=== PATIENT | male | born 1945 | race Caucasian/White ===

== ENCOUNTER 2016-11-22 21:06 | Emergency (ER) | payer MEDICARE, OTHER ==
[2016-11-22 21:23] VITALS: BP 111/73
[2016-11-22] MEDS ORDERED: Acetaminophen/HYDROcodone 325-5 MG Tab PO ONE ×2 (21:25→21:54)
--- NOTE | 2016-11-23 10:50 | CR ---
INDICATION: Fell and hit lower leg, pain from end of prosthesis to ankle. RIGHT TIBIA AND FIBULA: Five images of the right tibia and fibula revealed a TKA with extended intramedullary components in the tibia and fibula, which appears to be in good position and alignment, without evidence of a complicating process. Degenerative changes are noted at the ankle joint, appearing most prominent medially. A definite acute fracture or dislocation was not identified. Some sclerotic changes are noted in the distal fibula, most likely degenerative in nature. IMPRESSION: 1. Intact appearing TKA right knee. 2. 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 3. No definite acute fracture or dislocation. MTDD
--- NOTE | 2016-11-23 16:01 | ER ---
DATE SEEN: 11/22/2016 HISTORY OF PRESENT ILLNESS: The patient is a 71-year-old gentleman who presents to the emergency department with tibia pain. He was out on his pontoon boat and as he was getting off, slipped and cut his right jeong on the edge, sustaining an abrasion and pain in his tibia. He has had a knee replacement in the past but does not report any knee pain. He is able to walk. He is accompanied by his . MEDICATIONS: 1. Flunisolide. 2. Metoprolol. 3. Glucosamine. 4. Neurontin. 5. Zocor. 6. Xarelto. 7. Multivitamin. ALLERGIES: No known drug allergies. PAST MEDICAL HISTORY: Diverticulosis, right total knee replacement, hypertension. REVIEW OF SYSTEMS: CONSTITUTIONAL: No nausea, vomiting, fevers or chills. PHYSICAL EXAMINATION: VITAL SIGNS: Temperature 36.7, pulse 65, blood pressure 111/73, 18 respiratory rate, 98% on room air. GENERAL: He is in no apparent acute distress. MUSCULOSKELETAL: Reveals full range of motion of his knee and right ankle. Tenderness to palpation in mid tibia. DERMATOLOGIC: He has a rash and abrasion of his right tibia that measures about 2 x 4 cm. RADIOGRAPHIC DATA: X-rays of his knee and tibia show no acute fracture. No displacement of hardware or subluxation. EMERGENCY DEPARTMENT COURSE: The patient received [place] 5/325 one tab p.o. for his pain. ASSESSMENT: Right jeong abrasion. PLAN: We will send home with a take-home pack of pain medication, [place]. Wound care instructions given. Follow up with primary/Ortho if no significant improvement in a couple of days. /[id number] CLAU/ANGY
== END 2016-11-22 21:55 | disposition home or self-care (01) ==
LOC: FB.ED 21:06
DX: S80.811A Abrasion, right lower leg, initial encounter (principal); I10 Essential (primary) hypertension; W26.8XXA Contact with other sharp object(s), not elsewhere classified, initial encounter; K57.90 Diverticulosis of intestine, part unspecified, without perforation or abscess without bleeding; Z96.651 Presence of right artificial knee joint
CPT/HCPCS: 73590; 99283; A9270

== ENCOUNTER 2019-06-16 18:23 | Emergency (ER) | payer MEDICARE, OTHER ==
[2019-06-16] MEDS ORDERED: Sodium Chloride 0.9% 10 ML Syringe FLUSH PRN (18:56)
--- NOTE | 2019-06-16 19:00 | EDM.PDOC ---
ED HPI GENERAL MEDICAL PROBLEM - General Chief Complaint: General Stated Complaint: LIGHTED HEADED Time Seen by Provider: 06/16/19 18:45 Source of Information: Reports: Patient, Family, Old Records History Limitations: Reports: No Limitations - History of Present Illness INITIAL COMMENTS - FREE TEXT/NARRATIVE: Mc comes into [facility] ED with a 36 hr hx of lt headiness, worse with standing and movements. There has been no kayli vertigo, chest pain, SOB, palpitations, back pain, or headache. He had similar sxs years ago and found out he had AF. He was on Metoprolol 50 mg per day, but was tapered off this medication last year because of slow heart rate. - Related Data Allergies Allergy/AdvReac Type Severity Reaction Status Date / Time No Known Allergies Allergy Verified 06/16/19 18:51 Home Meds: Home Meds Flunisolide [Nasalide Nasal [place]] 2 spray NASBOTH ASDIRECTED PRN 08/12/15 [ History] Gabapentin [Neurontin] 300 mg PO TID 08/12/15 [History] Glucosam/Chondr/Collagn/Hyalur [Glucosamine & Chondroitin Cap] 2 tab PO DAILY [History] Metoprolol Succinate [Toprol XL] 50 mg PO DAILY 08/12/15 [History] Multivitamin with Minerals [Multiple Vitamin] 1 tab PO DAILY 08/12/15 [History] Rivaroxaban [Xarelto] 20 mg PO WITHDINNER 08/12/15 [History] Simvastatin [Zocor] 20 mg PO DAILY 08/12/15 [History] Past Medical History HEENT History: Reports: Allergic Rhinitis, Impaired Vision Cardiovascular History: Reports: Afib, High Cholesterol, Hypertension, Other ( See Below) Other Cardiovascular History: PAT Gastrointestinal History: Reports: GERD Musculoskeletal History: Reports: Arthritis, Back Pain, Chronic, Osteoarthritis Neurological History: Reports: Migraines - Past Surgical History GI Surgical History: Reports: Colonoscopy Musculoskeletal Surgical History: Reports: Arthroscopic Knee, Knee Replacement Social & Family History - Tobacco Use Smoking Status *Q: Never Smoker - Recreational Drug Use Recreational Drug Use: No ED ROS GENERAL - Review of Systems Review Of Systems: Comprehensive ROS is negative, except as noted in HPI. ED EXAM, GENERAL - Physical Exam Exam: See Below Exam Limited By: No Limitations General Appearance: Alert, WD/WN, No Apparent Distress Neck: Normal Inspection, Supple, Non-Tender Respiratory/Chest: Lungs Clear Cardiovascular: No Murmur, Irregularly Irregular GI/Abdominal: Normal Bowel Sounds, Soft, Non-Tender, No Organomegaly (Male) Exam: Deferred Rectal (Males) Exam: Deferred Back Exam: Normal Inspection Extremities: Normal Inspection Neurological: Alert, Oriented, CN II-XII Intact, Normal Cognition, Normal Gait, No Motor/Sensory Deficits Psychiatric: Normal Affect, Normal Mood Skin Exam: Warm, Dry, Intact, Normal Color Lymphatic: No Adenopathy Course - Vital Signs Text/Narrative:: Mc spontaneously slowed to a VR 60-70's when moved to another room, AF persisted however. He has been off the Metoprolol since last year, and should resume this med in low dose for rate managment. Last Recorded V/S: Last Vital Signs Temp 36.5 C 06/16/19 18:30 Pulse 74 06/16/19 18:30 Resp 16 06/16/19 18:30 BP 117/72 06/16/19 18:30 Pulse Ox 97 06/16/19 18:30 - Orders/Labs/Meds Orders: Active Orders 24 hr Category Date Time Status EKG Documentation Completion [RC] ASDIRECTED Care 06/16/19 18:57 Active URINALYSIS W/MICROSCOPIC [UA W/MICROSCOPIC] [URIN] Stat Lab 06/16/19 18:56 Ordered Sodium Chloride 0.9% [Saline Flush] Med 06/16/19 18:56 Active 10 ml FLUSH ASDIRECTED PRN Peripheral IV Insertion Adult [OM.PC] Routine Oth 06/16/19 18:56 Ordered EKG 12 Lead [EK] Routine Ther 06/16/19 18:56 Ordered Medication Orders Sodium Chloride (Saline Flush) 10 ml FLUSH ASDIRECTED PRN PRN Reason: Keep Vein Open Labs: Laboratory Tests 06/16/19 06/16/19 Range/Units 19:20 19:20 WBC 5.6 (4.5-12.0) X10-3/uL RBC 5.03 (4.30-5.75) x10(6)uL Hgb 15.8 (13.5-17.8) g/dL Hct 46.3 (30.0-51.3) % MCV 92.1 (80-96) fL MCH 31.4 (27.7-33.6) pg MCHC 34.1 (32.2-35.4) g/dL RDW 14.7 (11.5-15.5) % Plt Count 189 (125-369) X10(3)uL MPV 7.4 (7.4-10.4) fL Neut % (Auto) 57.4 (46-82) % Lymph % (Auto) 27.8 (13-37) % [place] % (Auto) 11.0 (4-12) % Eos % (Auto) 3 (1.0-5.0) % Baso % (Auto) 1 (0-2) % Neut # (Auto) 3.2 (1.6-8.3) # Lymph # (Auto) 1.6 (0.6-5.0) # Coos # (Auto) 0.6 (0.0-1.3) # Eos # (Auto) 0.2 (0.0-0.8) # Baso # (Auto) 0.0 (0.0-0.2) # Sodium 141 (135-145) mmol/L Potassium 4.7 (3.5-5.3) mmol/L Chloride 104 (100-110) mmol/L Carbon Dioxide 27 (21-32) mmol/L BUN 16 (7-18) mg/dL Creatinine 1.2 (0.70-1.30) mg/dL Est Cr Clr Drug Dosing 65.53 mL/min Estimated GFR (MDRD) 59 L (>60) BUN/Creatinine Ratio 13.3 (9-20) Glucose 101 (80-116) mg/dL Calcium 9.1 (8.6-10.2) mg/dL Total Bilirubin 0.5 (0.1-1.3) mg/dL AST 57 H (5-25) IU/L ALT 66 H (12-36) U/L Alkaline Phosphatase 57 (56-112) IU/L Total Protein 7.6 (6.0-8.0) g/dL Albumin 4.0 (3.2-4.6) g/dL Globulin 3.6 g/dL Albumin/Globulin Ratio 1.1 Meds: Medications Generic Name Dose Route Start Last Admin Trade Name Freq PRN Reason Stop Dose Admin Sodium Chloride 10 ml 06/16/19 18:56 Saline Flush FLUSH ASDIRECTED PRN Keep Vein Open Departure - Departure Time of Disposition: 20:03 Disposition: Home, Self-Care 01 Condition: Good Clinical Impression: Atrial fibrillation with rapid ventricular response - Discharge Information *PRESCRIPTION DRUG MONITORING PROGRAM REVIEWED*: Not Applicable *COPY OF PRESCRIPTION DRUG MONITORING REPORT IN PATIENT ANDI: Not Applicable Referrals: Kellen Roldan NP [Primary Care Provider] - Forms: ED Department Discharge Sepsis Event Note - Evaluation Sepsis Screening Result: No Definite Risk - Focused Exam Vital Signs: Vital Signs Temp Pulse Resp BP Pulse Ox 06/16/19 18:30 36.5 C 74 16 117/72 97 Date Exam was Performed: 06/16/19 Time Exam was Performed: 20:01 - Problem List & Annotations (1) Atrial fibrillation with rapid ventricular response SNOMED Code(s): 053159786554826 Code(s): I48.91 - UNSPECIFIED ATRIAL FIBRILLATION Status: Acute Current Visit: Yes Annotation/Comment:: Resume Metoprolol 25 mg bid and monitor rate before dosing. - Problem List Review Problem List Initiated/Reviewed/Updated: Yes - My Orders Last 24 Hours: My Active Orders 06/16/19 18:56 URINALYSIS W/MICROSCOPIC [UA W/MICROSCOPIC] [URIN] Stat Sodium Chloride 0.9% [Saline Flush] 10 ml FLUSH ASDIRECTED PRN Peripheral IV Insertion Adult [OM.PC] Routine EKG 12 Lead [EK] Routine 06/16/19 18:57 EKG Documentation Completion [RC] ASDIRECTED - Assessment/Plan Last 24 Hours: My Active Orders 06/16/19 18:56 URINALYSIS W/MICROSCOPIC [UA W/MICROSCOPIC] [URIN] Stat Sodium Chloride 0.9% [Saline Flush] 10 ml FLUSH ASDIRECTED PRN Peripheral IV Insertion Adult [OM.PC] Routine EKG 12 Lead [EK] Routine 06/16/19 18:57 EKG Documentation Completion [RC] ASDIRECTED Plan: Follow up with PCP later this month.
[2019-06-16 22:43] VITALS: PULSE 88
[2019-06-16 22:44] VITALS: BP 113/75
== END 2019-06-16 20:25 | disposition home or self-care (01) ==
LOC: FB.ED 18:23
DX: I48.91 Unspecified atrial fibrillation (principal); I10 Essential (primary) hypertension; E78.00 Pure hypercholesterolemia, unspecified; K21.9 Gastro-esophageal reflux disease without esophagitis; Z79.899 Other long term (current) drug therapy
CPT/HCPCS: 36415; 80053; 81001; 85025; 93005; 93010; 99284; 99284-25